=== PATIENT | male | born 1995 | race Caucasian/White ===

== ENCOUNTER 2024-04-22 04:37 | Emergency (ER) | payer SELFPAY ==
[2024-04-22 04:52] LABS: BASOPHILS ABSOLUTE AUTO 0.06 K/uL (0.00-0.20); BASOPHILS PERCENT AUTO 0.7 % (0.0-1.0); EOSINOPHILS ABSOLUTE AUTO 0.12 K/uL (0.00-0.45); EOSINOPHILS PERCENT AUTO 1.4 % (0.0-6.0); HEMATOCRIT 43.9 % (42.0-52.0); IMMATURE GRAN ABSOLUTE AUTO 0.03 K/uL (0.00-0.05); IMMATURE GRAN PERCENT AUTO 0.3 % (0.0-0.4); LYMPHOCYTES ABSOLUTE AUTO 3.08 K/uL (1.00-4.80); LYMPHOCYTES PERCENT AUTO 34.8 % (24.0-44.0); MEAN CORPUSCULAR HEMOGLOBIN 31.2 pg (28.0-32.0); MEAN CORPUSCULAR HGB CONC 36.4 g/dL (32.0-36.0); MEAN CORPUSCULAR VOLUME 85.6 fL (83.0-99.0); MEAN PLATELET VOLUME 9.7 fL (9.4-12.4); MONOCYTES ABSOLUTE AUTO 0.57 K/uL (0.00-0.80); MONOCYTES PERCENT AUTO 6.4 % (0.0-8.0); NEUTROPHILS ABSOLUTE AUTO 4.99 K/uL (1.80-7.70); NEUTROPHILS PERCENT AUTO 56.4 % (41.0-71.0); PLATELET COUNT,PLT 323 K/uL (150-400); RED BLOOD CELL COUNT 5.13 M/uL (4.52-5.90); WHITE BLOOD CELL COUNT,WBC 8.85 K/uL (3.9-11.3)
[2024-04-22 05:17] LABS: A/G RATIO 1.6 (0.9-1.6); ALBUMIN 4.5 g/dL (3.4-5.0); BILIRUBIN TOTAL 0.6 mg/dL (0.2-1.0); CALCIUM 9.6 mg/dL (8.5-10.1); CARBON DIOXIDE,CO2 25.8 mmol/L (21.0-32.0); CREATININE 1.3 mg/dL (0.8-1.3); EST CRCL DRUG DOSING (CG) 94.75 mL/min; POTASSIUM,K 3.7 mmol/L (3.5-5.1); PROTEIN TOTAL,TP 7.4 g/dL (6.4-8.2)
== END 2024-04-22 10:13 | disposition home or self-care (01) ==
LOC: EDBD → MERGE 04:37 → MW.ED 04:37
DX: Z77.22 Contact with and (suspected) exposure to environmental tobacco smoke (acute) (chronic) (principal); Z75.8 Other problems related to medical facilities and other health care; Z91.018 Allergy to other foods
CPT/HCPCS: 36415; 71045; 71045-26; 80053; 82375; 85025; 99284

== ENCOUNTER 2024-09-22 08:44 | Emergency (ER) | payer OTHER ==
[2024-09-22] MEDS: Ibuprofen 400 MG Tab PO ONE (09:37)
== END 2024-09-22 10:58 | disposition home or self-care (01) ==
LOC: MW.ED 08:44
DX: S59.902A Unspecified injury of left elbow, initial encounter (principal); Z88.8 Allergy status to other drugs, medicaments and biological substances; Z75.8 Other problems related to medical facilities and other health care; W22.8XXA Striking against or struck by other objects, initial encounter; Y99.0 Civilian activity done for income or pay
CPT/HCPCS: 73070; 99283; A9270

== ENCOUNTER 2024-11-14 08:03 | Emergency (ER) | payer OTHER ==
[2024-11-14] MEDS: Diphtheria,Pertussis(Acell),Tetanus Vaccine 0.5 ML Syringe IM ONE (08:44)
[2024-11-14] MEDS ORDERED: Amoxicillin/Clavulanate K 875-125 MG Tab PO ONE (09:34)
[2024-11-14] MEDS ORDERED: Doxycycline 100 MG Cap PO ONE (09:34)
== END 2024-11-14 10:43 | disposition home or self-care (01) ==
LOC: MW.ED 08:03
DX: S61.531A Puncture wound without foreign body of right wrist, initial encounter (principal); Z23 Encounter for immunization; Z91.09 Other allergy status, other than to drugs and biological substances; W55.01XA Bitten by cat, initial encounter
CPT/HCPCS: 73110-26-RT; 73110-RT; 90471; 99283; 99283-25

== ENCOUNTER 2024-11-16 08:05 | Emergency (ER) | payer OTHER ==
[2024-11-16] MEDS ORDERED: Sodium Chloride 0.9% 2.5 ML Syringe FLUSH PRN (08:56)
[2024-11-16] MEDS ORDERED: Sodium Chloride 0.9% 20 ML SDV IV PRN (08:56)
[2024-11-16] MEDS ORDERED: Sodium Chloride 0.9% 10 ML Syringe FLUSH PRN (08:56)
[2024-11-16 09:15] LABS: BASOPHILS ABSOLUTE AUTO 0.06 K/uL (0.00-0.20); BASOPHILS PERCENT AUTO 0.6 % (0.0-1.0); EOSINOPHILS ABSOLUTE AUTO 0.13 K/uL (0.00-0.45); EOSINOPHILS PERCENT AUTO 1.3 % (0.0-6.0); HEMATOCRIT 41.6 % (42.0-52.0); HEMOGLOBIN 15.2 g/dL (14.0-18.0); IMMATURE GRAN ABSOLUTE AUTO 0.02 K/uL (0.00-0.05); IMMATURE GRAN PERCENT AUTO 0.2 % (0.0-0.4); LYMPHOCYTES ABSOLUTE AUTO 2.98 K/uL (1.00-4.80); LYMPHOCYTES PERCENT AUTO 29.1 % (24.0-44.0); MEAN CORPUSCULAR HEMOGLOBIN 31.6 pg (28.0-32.0); MEAN CORPUSCULAR HGB CONC 36.5 g/dL (32.0-36.0); MEAN CORPUSCULAR VOLUME 86.5 fL (83.0-99.0); MEAN PLATELET VOLUME 9.7 fL (9.4-12.4); MONOCYTES ABSOLUTE AUTO 0.64 K/uL (0.00-0.80); MONOCYTES PERCENT AUTO 6.3 % (0.0-8.0); NEUTROPHILS PERCENT AUTO 62.5 % (41.0-71.0); PLATELET COUNT,PLT 294 K/uL (150-400); RED BLOOD CELL COUNT 4.81 M/uL (4.52-5.90); WHITE BLOOD CELL COUNT,WBC 10.23 K/uL (3.9-11.3)
[2024-11-16] MEDS: Iopamidol 755 MG/ML 500 ML Multipack Bottle IVPUSH STA (09:29)
[2024-11-16 09:32] LABS: INR 1.06 (0.86-1.11); PTT,PARTIAL THROMBOPLSTIN TIME 28.8 SEC (23.9-30.7)
[2024-11-16 09:40] LABS: A/G RATIO 1.4 (0.9-1.6); ALBUMIN 4.3 g/dL (3.4-5.0); BILIRUBIN TOTAL 0.6 mg/dL (0.2-1.0); CALCIUM 9.2 mg/dL (8.5-10.1); CARBON DIOXIDE,CO2 23.5 mmol/L (21.0-32.0); CREATININE 1.3 mg/dL (0.8-1.3); EST CRCL DRUG DOSING (CG) 92.03 mL/min; MAGNESIUM 2.1 mg/dL (1.8-2.4); POTASSIUM,K 3.9 mmol/L (3.5-5.1); PROTEIN TOTAL,TP 7.4 g/dL (6.4-8.2)
[2024-11-16 10:07] LABS: LACTIC ACID 1.1 mmol/L (0.4-2.0)
[2024-11-16] MEDS: Levofloxacin 500 MG Tab PO ONE (10:53)
[2024-11-16] MEDS: Levofloxacin 250 MG Tab PO ONE (11:39)
== END 2024-11-16 11:43 | disposition home or self-care (01) ==
LOC: MW.ED 08:05
DX: L03.113 Cellulitis of right upper limb (principal); Z88.8 Allergy status to other drugs, medicaments and biological substances
CPT/HCPCS: 36415; 73201; 80053; 83605; 83735; 85025; 85610; 85730; 86140; 87040; 99284; A9270; Q9967; 99283